=== PATIENT | female | born 1980 | race Caucasian/White ===

== ENCOUNTER → 2016-10-23 | Outpatient (CLI) | payer BC, OTHER ==
[~2016-10-23] MED LIST: AMBIEN 10 MG TA10 MG PO; AMOXICILLIN/POTASSIU PO; BENICAR HCT 401 EACH PO; DEXILANT60 MG PO; ESTRACE1 MG PO; HYZAAR 50-12.51 EACH PO; IBUPROFEN 200200 M1 PO; LAMOTRIGINE150 MG PO; LIVALO2 MG PO; LORTAB 5 MG/5001 TA1 PO; PERCOCET 5-3251 EACH PO; TUMS PO; VIVELLE-DOT1 EAC1 TRANSDERM; XANAX 0.5 MG0.5 M1 PO; XOPENEX HF1 UDINHALE INH
== END ==
LOC: RAD 16:28
DX: M54.5 Low back pain (principal)

== ENCOUNTER → 2016-11-06 | Outpatient (CLI) | payer BC, OTHER | LOC: CAT 12:42 | DX: R10.9 Unspecified abdominal pain (principal) ==

== ENCOUNTER → 2016-11-13 | Outpatient (CLI) | payer BC, OTHER | LOC: CAT 08:56 | DX: R59.1 Generalized enlarged lymph nodes (principal); R63.4 Abnormal weight loss ==

== ENCOUNTER → 2017-09-18 | Outpatient (CLI) | payer OTHER | LOC: ULTRA 09:38 | DX: R59.0 Localized enlarged lymph nodes (principal); R07.0 Pain in throat; Z87.891 Personal history of nicotine dependence ==

== ENCOUNTER 2018-10-15 17:07 | Emergency (ER) | payer OTHER ==
[~2018-10-15] VITALS: Ht 170.2 cm; Wt 59.0 kg
[2018-10-15 17:51] LABS: ABSOLUTE NEUTROPHILS 4.7 thou/uL (1.4-8.2); BASOPHILS 1.2 % (0.0-2.0); EOSINOPHILS 0.9 % (0.0-3.0); HEMATOCRIT 39.7 % (37.0-47.0); HEMOGLOBIN 13.7 gm/dL (12.0-15.0); LYMPHOCYTES 33.5 % (24.0-44.0); MCH 32.7 pg (26.0-34.0); MCHC 34.6 g/dL (28.0-37.0); MCV 94.7 fL (80.0-100.0); MONOCYTES 7.9 % (1.0-8.0); PLATELET COUNT 323 thou/uL (150-400); POLYS 56.5 % (36.0-66.0); RDW 12.8 % (10.5-14.5); WBC 8.3 thou/uL (4.0-11.0)
[2018-10-15 17:54] LABS: CALCIUM 8.9 mg/dL (8.5-10.1); CREATININE 0.7 mg/dL (0.6-1.0); POTASSIUM 3.5 mmol/L (3.5-5.1)
[2018-10-15 17:55] LABS: URINE BILIRUBIN NEGATIVE (Negative); URINE BLOOD NEGATIVE (Negative); URINE CLARITY CLEAR; URINE COLOR YELLOW; URINE GLUCOSE-RANDOM* NEGATIVE (Negative); URINE KETONES NEGATIVE (Negative); URINE LEUKOCYTES-REFLEX NEGATIVE (Negative); URINE NITRITE-REFLEX NEGATIVE (Negative); URINE PROTEIN (DIPSTICK) NEGATIVE (Negative); URINE SPECIFIC GRAVITY <= 1.005 (1.005-1.035); URINE UROBILINOGEN 0.2 E.U./dl (0.2-1.0)
[2018-10-15 18:01] LABS: ALBUMIN 3.9 g/dL (3.4-5.0); TOTAL BILIRUBIN 0.2 mg/dL (<0.1-1.0); TOTAL PROTEIN 7.1 g/dL (6.4-8.2)
[2018-10-15 18:39] LABS: APTT 28.2 Seconds (24.5-32.8); PROTIME 10.1 Seconds (9.3-11.4)
[2018-10-15 19:03] VITALS: BP 111/72
== END 2018-10-15 19:03 | disposition home or self-care (01) ==
LOC: ER 17:07
PROVIDERS: Emergency Medicine
DX: K29.70 Gastritis, unspecified, without bleeding (principal); I10 Essential (primary) hypertension; J45.909 Unspecified asthma, uncomplicated; K21.9 Gastro-esophageal reflux disease without esophagitis; F17.210 Nicotine dependence, cigarettes, uncomplicated; Z90.49 Acquired absence of other specified parts of digestive tract; Z90.710 Acquired absence of both cervix and uterus; Z88.6 Allergy status to analgesic agent; Z88.8 Allergy status to other drugs, medicaments and biological substances